=== PATIENT | female | born 1945 | race Caucasian/White ===

== ENCOUNTER 2021-07-06 08:52 | Observation (INO) | payer MEDICARE ==
[~2021-07-06] VITALS: Ht 170.2 cm; Wt 64.4 kg
[2021-07-06 09:38] LABS: HEMOGLOBIN 16.2 gm/dl (12.3-15.3); RED BLOOD COUNT 5.34 M/UL (4.00-5.10); WHITE BLOOD COUNT 7.2 K/UL (4.5-11.0)
[2021-07-06 10:52] LABS: BUN/CREATININE RATIO 26 (0-10)
[2021-07-06] MEDS ORDERED: VITAMIN D21250 MCG PO (11:46)
[2021-07-06] MEDS ORDERED: LEVOTHYROXINE50 MCG PO (11:47)
[2021-07-06] MEDS ORDERED: GLUCOPHAGE 500500 MG PO (11:47)
[2021-07-06] MEDS ORDERED: METFORMIN HCL500 MG PO (11:48)
[2021-07-06] MEDS ORDERED: VITAMIN D 40400 UNIT PO (11:48)
[2021-07-06] MEDS ORDERED: FISH OIL 1,0001 EACH PO (11:48)
[2021-07-06] MEDS ORDERED: GINGER500 MG PO (11:49)
[2021-07-06] MEDS ORDERED: IBU-200200 MG PO (11:49)
[2021-07-08 06:43] LABS: HEMOGLOBIN 14.6 gm/dl (12.3-15.3); WHITE BLOOD COUNT 6.6 K/UL (4.5-11.0)
[2021-07-08 06:44] LABS: RED BLOOD COUNT 4.8 M/UL (4.00-5.10)
[2021-07-08 07:06] LABS: BUN/CREATININE RATIO 24 (0-10)
[2021-07-08] MEDS ORDERED: ASPIRIN EC81 MG PO (16:57)
[2021-07-08] MEDS ORDERED: ATORVASTATIN CA10 MG PO (16:57)
[2021-07-08] MEDS ORDERED: NICOTINE PATCH1 EAC2 TD (16:57)
[2021-07-08] MEDS ORDERED: MECLIZINE HCL25 MG PO (16:58)
== END 2021-07-08 18:00 | disposition home or self-care (01) ==
LOC: ER1 08:52 → M/S 10:51 → CDU 10:51 → M/S 13:27
PROVIDERS: Emergency Medicine; ADMIT Internal Medicine
DX: H81.10 Benign paroxysmal vertigo, unspecified ear (principal); I65.23 Occlusion and stenosis of bilateral carotid arteries; U07.1 COVID-19; I10 Essential (primary) hypertension; E03.9 Hypothyroidism, unspecified; E11.9 Type 2 diabetes mellitus without complications; F17.210 Nicotine dependence, cigarettes, uncomplicated; E55.9 Vitamin D deficiency, unspecified; Z79.84 Long term (current) use of oral hypoglycemic drugs; Z79.899 Other long term (current) drug therapy
CPT/HCPCS: ECHO; 36415; 70450; 70496; 70498; 70551; 71045; 80053; 82550; 82553; 82962; 83036; 84484; 85025; 85610; 85730; 93005; 93306; 96372; 97112; 97116; 97161; 97165; 97530; 99285; G0378; J1650; Q9967; U0002